=== PATIENT | male | born 1995 | race Caucasian/White ===

== ENCOUNTER 2020-02-10 19:09 | Emergency (ER) | payer BC, OTHER ==
[~2020-02-10] VITALS: Ht 185.4 cm; Wt 74.8 kg
[2020-02-10] MEDS ORDERED: levETIRAcetam 500mg/NS100ml 100 ML IVPB ONE ×2 (19:15→19:34)
[2020-02-10] MEDS ORDERED: LORazepam Inj 2mg/ml 1ml IV ONE (19:15)
--- NOTE | 2020-02-10 19:19 | Emergency Room Report ---
History of Present Illness General Chief Complaint: Seizure Source: Patient Present Illness HPI Bystanders called paramedics. He was found in the bushes. Initially was disoriented. Gradually he returned consciousness. He has a history of seizures but has been off of Keppra since 2015. 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 Usually has focal seizures and remembers them. He does not remember what happened to himself this time. He is complaining about right-sided body pain which is usual after he has had a seizure. The pain is rated 8/10. It is an aching feeling and fairly constant. He has abrasions on his arms. Tetanus is up-to-date Prior to 2014 most of his seizures were focal on the right-hand side. He did not lose consciousness during these episodes. No fevers, chills, sore throat, chest pain, palpitations, nausea, vomiting, diarrhea, dysuria, abdominal pain, shortness of breath, joint pain, dizziness. The patient is undergoing stress at this time as he is recently moved from [place] and does not have a job. 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 [place] Reviewed Nursing Documentation: PMH: Agreed; PSxH: Agreed Nursing Documentation-PMH Hx Seizures: Yes Review of Systems All Other Systems: negative except mentioned in HPI Physical Exam Vital Signs Date Time Temp Pulse Resp B/P (MAP) Pulse Ox O2 Delivery O2 Flow Rate FiO2 02/10/20 19:01 98.2 94 18 149/83 (105) 97 Sp02 EP Interpretation: reviewed, normal General Appearance: well appearing, no apparent distress, GCS 15 - Does not know what happened Head: normocephalic, other - Left zygomatic swelling without crepitance Eyes: bilateral eye normal inspection, bilateral eye PERRL, bilateral eye EOMI ENT: moist mucus membranes - No lingual trauma Neck: full range of motion, supple, no bony tend Respiratory: chest non-tender, lungs clear, normal breath sounds Cardiovascular #1: regular rate, rhythm Cardiovascular #2: 2+ radial (R) Gastrointestinal: normal inspection, normal bowel sounds, non tender, no mass, non-distended, scaphoid Genitourinary: no CVA tenderness Musculoskeletal: back normal, normal range of motion Neurologic: alert, motor strength/tone normal, theoretical physicist III-XII nml as tested, DTRs symmetric, oriented x3, sensory intact, cerebellar normal, speech normal Psychiatric: mood/affect normal Skin: warm/dry, abrasion - Wrists and L zygoma Medical Decision Making Diagnostic Impression: Primary Impression: Seizure Additional Impression: Congenital brain anomaly ER Course Patient with a history of prior focal seizures presents after generalized tonic- clonic seizure. Differential includes electrolyte imbalance, head injury, brain bleed, breakthrough seizure amongst others. Evaluation with EKG, CT of the head, chest x-ray and labs. Patient given a dose of Ativan, Keppra and Tylenol. Tetanus is up-to-date however abrasions will be treated with bacitracin. EKG without injury. CT with large left ventricle. Chest x-ray no infiltrates. Labs essentially unremarkable. Discussed with patient's mother. Patient still complaining about pain. Zofran and morphine administered. Neurologic exam completely normal at this time. Discussed findings and treatment plan with patient. Patient stable for outpatient observation and treatment. Patient does not drive and notification of the DMV is not necessary. Laboratory Tests Test 02/10/20 19:25 02/10/20 21:10 White Blood Count 10.9 K/UL (4.8-10.8) H Red Blood Count 5.28 M/UL (4.70-6.10) Hemoglobin 15.6 G/DL (14.2-18.0) Hematocrit 46.5 % (42.0-52.0) Mean Corpuscular Volume 88 FL (80-99) Mean Corpuscular Hemoglobin 29.5 PG (27.0-31.0) Mean Corpuscular Hemoglobin Concent 33.5 G/DL (32.0-36.0) Red Cell Distribution Width 11.8 % (11.6-14.8) Platelet Count 276 K/UL (150-450) Mean Platelet Volume 8.5 FL (6.5-10.1) Neutrophils (%) (Auto) 83.4 % (45.0-75.0) H Lymphocytes (%) (Auto) 9.8 % (20.0-45.0) L Monocytes (%) (Auto) 4.6 % (1.0-10.0) Eosinophils (%) (Auto) 1.1 % (0.0-3.0) Basophils (%) (Auto) 1.0 % (0.0-2.0) Sodium Level 141 MMOL/L (136-145) Potassium Level 4.4 MMOL/L (3.5-5.1) Chloride Level 101 MMOL/L (98-107) Carbon Dioxide Level 20 MMOL/L (21-32) L Anion Gap 20 mmol/L (5-15) H Blood Urea Nitrogen 12 mg/dL (7-18) Creatinine 1.0 MG/DL (0.55-1.30) Estimate Glomerular Filtration Rate > 60 mL/min (>60) Glucose Level 99 MG/DL (74-106) Calcium Level 10.0 MG/DL (8.5-10.1) Total Bilirubin 1.6 MG/DL (0.2-1.0) H Direct Bilirubin 0.2 MG/DL (0.0-0.3) Aspartate Amino Transferase (AST) 28 U/L (15-37) Alanine Aminotransferase (ALT) 37 U/L (12-78) Alkaline Phosphatase 70 U/L (46-116) Total Creatine Kinase 331 U/L (26-308) H Troponin I 0.001 ng/mL (0.000-0.056) Total Protein 8.3 G/DL (6.4-8.2) H Albumin 5.5 G/DL (3.4-5.0) H Globulin 2.8 g/dL Albumin/Globulin Ratio 2.0 (1.0-2.7) Salicylates Level < 0.2 ug/mL (2.8-20) L Acetaminophen Level < 2 MCG/ML (10-30) L Serum Alcohol < 3 mg/dL Urine Color Pale yellow Urine Appearance Clear Urine pH 5 (4.5-8.0) Urine Specific [place] 1.020 (1.005-1.035) Urine Protein 2+ (NEGATIVE) H Urine Glucose (UA) Negative (NEGATIVE) Urine Ketones 2+ (NEGATIVE) H Urine Blood 2+ (NEGATIVE) H Urine Nitrite Negative (NEGATIVE) Urine Bilirubin Negative (NEGATIVE) Urine Urobilinogen Normal MG/DL (0.0-1.0) Urine Leukocyte Esterase Negative (NEGATIVE) Urine RBC 2-4 /HPF (0 - 0) H Urine WBC 0-2 /HPF (0 - 0) Urine Squamous Epithelial Cells Occasional /LPF Urine Amorphous Sediment Moderate /LPF (NONE) H Urine Bacteria Few /HPF (NONE) Urine Opiates Screen Negative (NEGATIVE) Urine Barbiturates Screen Negative (NEGATIVE) Phencyclidine (PCP) Screen Negative (NEGATIVE) Urine Amphetamines Screen Negative (NEGATIVE) Urine Benzodiazepines Screen Negative (NEGATIVE) Urine Cocaine Screen Negative (NEGATIVE) Urine Marijuana (THC) Screen Positive (NEGATIVE) H EKG Diagnostic Results Rate: normal Rhythm: NSR ST Segments: no acute changes Rhythm Strip Diag. Results EP Interpretation: yes Rhythm: NSR, no PVC's, no ectopy Chest X-Ray Diagnostic Results Chest X-Ray Diagnostic Results : Indication: Other EP Interpretation: Yes Interpretation: no consolidation, no effusion, no pneumothorax Impression: No acute disease Electronically Signed by: Electronically signed by Santosh Quiñonez MD CT/MRI/US Diagnostic Results CT/MRI/US Diagnostic Results : Imaging Test Ordered: Head Impression Enlarged left ventricle and according to patient and mom this is chronic finding Last Vital Signs Date Time Temp Pulse Resp B/P (MAP) Pulse Ox O2 Delivery O2 Flow Rate FiO2 02/10/20 21:55 98.2 82 18 133/86 99 Status: improved Disposition: HOME, SELF-CARE Condition: Improved Scripts Levetiracetam (Keppra) 250 Mg Tablet 500 MG ORAL EVERY 12 HOURS, #50 TAB 1 Refill Prov: Santosh Quiñonez MD 02/10/20 Santosh Quiñonez MD Feb 10, 2020 19:19
[2020-02-10] MEDS ORDERED: Bacitracin Oint UD TOPIC ONE (19:30)
[2020-02-10] MEDS ORDERED: LORazepam Inj 2mg/ml 1ml ONE (19:34)
--- NOTE | 2020-02-10 19:35 | NUR ---
ED Nurse Note: [facility], pt found jake round, post-ictal, has hx of sz, mild abrasions noted to left side of face and hands, pt states has not had sz in over 2 years, pt stopped taking keppra and started using CBD oil instead, pt denies cp, no sob or labored breathing, cv/o mild headache, pt immediately gowned and palced on cardiac monitoring, has patent saline lock in left arm, will resume care as ordered and closely monitor, seizure precautiions initiated with padded side rails.
[2020-02-10 19:55] LABS: EOSINOPHILS % (AUTO) 1.1 % (0.0-3.0); HEMATOCRIT 46.5 % (42.0-52.0); HEMOGLOBIN 15.6 G/DL (14.2-18.0); LYMPHOCYTES % (AUTO) 9.8 % (20.0-45.0); MEAN CORPUSCULAR VOLUME 88 FL (80-99); MONOCYTES % (AUTO) 4.6 % (1.0-10.0); NEUTROPHILS % (AUTO) 83.4 % (45.0-75.0); PLATELET COUNT 276 K/UL (150-450); RED BLOOD COUNT 5.28 M/UL (4.70-6.10); RED CELL DISTRIBUTION WIDTH 11.8 % (11.6-14.8); WHITE BLOOD COUNT 10.9 K/UL (4.8-10.8)
[2020-02-10 20:09] LABS: ANION GAP 20 mmol/L (5-15); BLOOD UREA NITROGEN 12 mg/dL (7-18); CARBON DIOXIDE 20 MMOL/L (21-32); CHLORIDE 101 MMOL/L (98-107); POTASSIUM 4.4 MMOL/L (3.5-5.1); SODIUM 141 MMOL/L (136-145)
[2020-02-10 20:21] LABS: ALANINE AMINOTRANSFERASE 37 U/L (12-78); ALBUMIN 5.5 G/DL (3.4-5.0); ALKALINE PHOSPHATASE 70 U/L (46-116); ASPARTATE AMINO TRANSFERASE 28 U/L (15-37); BILIRUBIN,TOTAL 1.6 MG/DL (0.2-1.0); CREATINE KINASE 331 U/L (26-308)
[2020-02-10 20:24] LABS: BILIRUBIN,DIRECT 0.2 MG/DL (0.0-0.3)
[2020-02-10] MEDS ORDERED: Morphine Sulfate 4mg/ml Inj (IV USE ONLY) IVP ONE (20:30)
[2020-02-10] MEDS ORDERED: KEPPRA500 MG ORAL (21:24)
[2020-02-10 21:27] LABS: APPEARANCE,URINE CLEAR; BILIRUBIN, URINE NEGATIVE (NEGATIVE); COLOR,URINE PALE YELLOW; GLUCOSE, URINE (UA) NEGATIVE (NEGATIVE); KETONES,URINE 2+ (NEGATIVE); LEUKOCYTE ESTERASE ,URINE NEGATIVE (NEGATIVE); NITRITE,URINE NEGATIVE (NEGATIVE); PH,URINE 5 (4.5-8.0); PROTEIN,URINE 2+ (NEGATIVE); UROBILINOGEN,URINE NORMAL MG/DL (0.0-1.0)
[2020-02-10 21:30] VITALS: BP 133/86
--- NOTE | 2020-02-10 21:45 | NUR ---
ER DISCHARGE NOTE: Patient is cleared to be discharged per ERMD, pt is aox4, on room air, with stable vital signs. pt was given dc and prescription instructions, pt was able to verbalize understanding, pt id band and iv site removed without complications. pt is able to ambulate with steady gait. pt took all belongings.pt with famnily member.
[2020-02-10 21:55] VITALS: BP 133/86
--- NOTE | 2020-02-11 | Diagnostic Imaging Report ---
Indications: Seizure Technique: Spiral acquisitions obtained through the brain. Angled axial and coronal 5 x 5 mm slices were reconstructed. Total dose length product 1179 mGycm. CTDI vol(s) 53 mGy. Dose reduction achieved using automated exposure control Comparison: None. Findings: There is a large cystic space in the left central parietal lobe which communicates with the left lateral ventricle and extends to the surface of the convexity.. This does not result in any significant mass effect except for slight leftward deviation of the upper septum pellucidum. There is some dystrophic ossification at the anterior medial periphery of lesion. There is some thinning of the overlying calvarium. There is also asymmetric development of the calvarium, There is prominence of the cisterna magna. No acute intracranial hemorrhage. No mass effect nor midline shift. Normal gomes-white differentiation. The remaining ventricles and extra axial CSF spaces are normal in caliber. 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 The CT scanner at [facility] is accredited by the [employer] and the scans are performed using protocols designed to limit radiation exposure to as low as reasonably achievable to attain images of sufficient resolution adequate for diagnostic evaluation.
--- NOTE | 2020-02-11 08:38 | Diagnostic Imaging Report ---
Indication: Shortness of breath, seizure Technique: One view of the chest Comparison: none Findings: Lungs and pleural spaces are clear. Heart size is normal. Impression: No acute process
== END 2020-02-10 21:58 | disposition home or self-care (01) ==
LOC: EDBD 19:09 → EMR 20:35
DX: G40.909 Epilepsy, unspecified, not intractable, without status epilepticus (principal); Q04.9 Congenital malformation of brain, unspecified; S40.812A Abrasion of left upper arm, initial encounter; S40.811A Abrasion of right upper arm, initial encounter; X58.XXXA Exposure to other specified factors, initial encounter; Y92.9 Unspecified place or not applicable
CPT/HCPCS: 36415; 70450; 71045; 80053; 80307; 81003; 82248; 82550; 84484; 85025; 93005; 96361; 96374; 96375; 99284; G0480; J1953; J2270; J2405; J7030